=== PATIENT | female | born 1930 | race Caucasian/White ===

== ENCOUNTER 2017-05-02 10:49 | Inpatient (IN) | payer MEDICARE, MEDICAID ==
[~2017-05-02] VITALS: Ht 157.5 cm; Wt 49.4 kg
[2017-05-04] MEDS ORDERED: GEL100GE MC (16:01)
[2017-05-04] MEDS ORDERED: MAGN30OR PO (16:01)
[2017-05-04] MEDS ORDERED: ONDA4TAB5 PO (16:01)
[2017-05-04] MEDS ORDERED: HYDR-552 PO (16:01)
[2017-05-04] MEDS ORDERED: ACET-2154 PO (16:01)
[2017-05-04] MEDS ORDERED: DILT240C2 PO (16:01)
[2017-05-04] MEDS ORDERED: ERGO500014 PO (16:01)
[2017-05-04] MEDS ORDERED: MAG30ORA PO (16:01)
[2017-05-04] MEDS ORDERED: ZOLP5TAB2 PO (16:01)
[2017-05-04] MEDS ORDERED: MAGN400O6 PO (16:01)
[2017-05-04 16:23] VITALS: BP 114/74
[2017-05-04] MEDS ORDERED: Z GUARD REMEDY PASTE 57 GM TUBE TOP PRN (16:45)
--- NOTE | 2017-05-04 16:47 | NUR ---
pt received from from [place]. received report from k[place]ber[place]. pt arrived at 1600. vital signs assessed. pt has elevated rectal temperature of 100.4 and oral of 99.1. pt is warm to touch. provided cooling measures. pt had redness and edema for both feet. pt appeared red. other vitals stable. raised legs and offloaded heels. other vitals stable. med recon done. pt belongings list done. awaiting md to continue medications. pt unable to sign documentations at the time because pt is asleep. will continue to monitor.
--- NOTE | 2017-05-04 17:51 | NUR ---
md collins recommended not to have dvt pumps. aware of swelling on legs. will continue to mnitor.
[2017-05-04] MEDS ORDERED: ONDANSETRON HCL 4 MG TABLET PO PRN (20:00)
[2017-05-04] MEDS ORDERED: ZOLPIDEM 5 MG TABLET PO PRN (20:00)
[2017-05-04] MEDS ORDERED: MAG HYDROX/AL HYDROX/SIMETH 30 ML LIQUID UDC PO PRN (20:00)
[2017-05-04] MEDS ORDERED: ACETAMINOPHEN 325 MG TABLET PO PRN (20:00)
[2017-05-04] MEDS ORDERED: ERGOCALCIFEROL 50,000 UNIT CAPSULE PO SCH (20:00)
[2017-05-04 20:35] VITALS: BP 122/66
--- NOTE | 2017-05-04 21:19 | NUR ---
ERGOCALCITROL 50,000 UNITS NOT AVAILABLE. CHARGE NURSE AND NURSING CNC MACHINE OPERATOR AWARE.
--- NOTE | 2017-05-05 05:10 | NUR ---
awake alert and oriented when received. patient compliant with the care. Afebrile. incontinent of urine x2 Kept clean and dry. Repositioned for comfort. Turned q2 hrs. Needs attended. Denies any pain nor any discomfort. Will monitor patient.Slept well most of the shift. Fall precautions maintained.Siderails up.
[2017-05-05 07:15] VITALS: BP 122/76
[2017-05-05] MEDS: DILTIAZEM HCL CD 240 MG CAP.SR.24H PO SCH (09:17)
[2017-05-05] MEDS: HYDROCODONE/APAP 5-325MG TABLET PO PRN (09:19)
[2017-05-05] MEDS ORDERED: ERGOCALCIFEROL 50,000 UNIT CAPSULE PO SCH (10:02)
--- NOTE | 2017-05-05 16:08 | NUR ---
Family present at breakfast time and pt. feeding self with good appetite. Pt. working with P.T. this morning with good tolerance. Pain managed with prn [place] and positioning. Pt. encouraged to reposition every 2 hrs. with 1 pers assist. Zachary. legs elevated due to slight edema. Pt. sleeping intermittently throughout shift. No acute distress noted and all needs attended.
[2017-05-05 20:34] VITALS: BP 122/74
--- NOTE | 2017-05-06 07:37 | NUR ---
PATIENT NOTED LYING IN BED WATCHING TV, NO COMPLAINTS OF PAIN AT THIS TIME, NO SIGNS OF DISTRESS NOTED, CALL LIGHT IN REACH, BED LOCKED AND IN LOWEST POSITION, ALL NEEDS MET AT THIS TIME
[2017-05-06 08:30] LABS: BASOPHILS % (AUTO) 0.8 % (0.0-2.0); EOSINOPHILS # (AUTO) 0.1 K/uL (0.0-0.7); EOSINOPHILS % (AUTO) 2.3 % (0.0-7.0); HEMATOCRIT 42.2 % (31.2-41.9); HEMOGLOBIN 13.9 g/dL (10.9-14.3); LYMPHOCYTES # (AUTO) 1.1 K/uL (20.0-40.0); MEAN CORPUSCULAR HEMOGLOBIN 29.2 uug (24.7-32.8); MEAN CORPUSCULAR HGB CONC 33 g/dL (32.3-35.6); MEAN CORPUSCULAR VOLUME 88.7 fL (75.5-95.3); MONOCYTES # (AUTO) 0.6 K/uL (2.0-10.0); MONOCYTES % (AUTO) 12.2 % (0.0-11.0); NEUTROPHILS # (AUTO) 3.1 K/uL (1.8-8.9); NEUTROPHILS % (AUTO) 61.7 % (38.5-71.5); PLATELET COUNT (AUTO) 283 K/uL (179-408); RED BLOOD CELL COUNT(AUTO) 4.76 MIL/uL (3.63-4.92)
[2017-05-06 08:46] LABS: IRON, SERUM 22 ug/dL (50-175)
[2017-05-06 08:49] LABS: THYROID STIMULATING HORMONE 1.599 mIU/mL (0.358-3.740)
[2017-05-06] MEDS: DILTIAZEM HCL CD 240 MG CAP.SR.24H PO SCH (09:07)
[2017-05-06 09:08] LABS: ALANINE AMINOTRANSFERASE 24 U/L (14-59); ALKALINE PHOSPHATASE 126 U/L (50-136); ASPARTATE AMINOTRANSFERASE 21 U/L (15-37); BILIRUBIN,TOTAL 0.5 mg/dL (0.2-1.0); CARBON DIOXIDE 26 mmol/L (21-32); CHLORIDE 104 mmol/L (98-107); CHOLESTEROL 145 mg/dL (<200); CREATININE 1.1 mg/dL (0.6-1.3); GLUCOSE 111 mg/dL (74-106); HDL CHOLESTEROL 54 mg/dL (40-60); MAGNESIUM 2.2 mg/dL (1.8-2.4); PHOSPHOROUS 3.2 mg/dL (2.5-4.9); POTASSIUM 4.2 mmol/L (3.5-5.1); TOTAL PROTEIN, SERUM 7.4 g/dL (6.4-8.2); TRIGLYCERIDES 81 MG/DL (30-150); UREA NITROGEN, BLOOD 25 mg/dL (7-18)
[2017-05-06] MEDS: HYDROCODONE/APAP 5-325MG TABLET PO PRN (17:35)
[2017-05-06 19:30] VITALS: BP 115/73
--- NOTE | 2017-05-06 19:30 | NUR ---
Pt. already sleeping during rounds. Vitals signs taken BP 115/73, T 97.9, P 84, R 18, O2 sat @ 95% on 2LPM. Breathing even and nonlabored. Safety measures provided. Call light in reach.
--- NOTE | 2017-05-07 05:27 | NUR ---
pt. slept throughout the night. Denies of any pain or discomfort. All needs attended to. Kept clean and dry. Will endorse to AM nurse.
[2017-05-07 08:24] VITALS: BP 124/62
[2017-05-07] MEDS: DILTIAZEM HCL CD 240 MG CAP.SR.24H PO SCH (09:00)
--- NOTE | 2017-05-07 12:00 | NUR ---
SBAR report received near bedside, board updated. Pt awake, alert, and oriented. Pt assessed, no SOB, and denies any c/o pain. Pt compliant but BP 112/66, pulse 90, re assessed BP 108/69, pulse 93 Diltiazam held. Pt seen by MD. All safety and comfort needs met. Today's plan of care discussed including PT and OT. Call light and personal items within reach. Will continue to monitor Pt.
--- NOTE | 2017-05-07 14:16 | NUR ---
I agree Addendum: 05/07/17 at 1416 by DENNISE SNEED OT Amended: Links added.
--- NOTE | 2017-05-07 18:39 | NUR ---
Pt sitting comfortably in semi-fowlers in bed. Pt denies any SOB and O2 sat. 96% on RA. Pt denies any pain at this time. V/S remain WNL. Pt compliant with all routine medication administration and therapies this shift. Pt is clean, dry, and repositioned. All safety and comfort measures met at this time. Call light and personal items within reach. Will continue to monitor and endorse to oncoming shift supervisor.
--- NOTE | 2017-05-07 19:35 | NUR ---
Received pt in bed, appearing to be asleep but easily arousable to verbal stimuli. No acute distress noted. Denies pain or discomfort at this time. Right wrist heplock noted patent and intact, denies pain at site. Able to verbalize needs. Breathing even and unlabored. All safety measures and fall precautions maintained. Call light within reach. Will continue to monitor.
[2017-05-07 21:01] VITALS: BP 130/79
--- NOTE | 2017-05-08 06:14 | NUR ---
Pt slept comfortably throughout the shift. No acute distress noted. No complaints of pain or discomfort. Kept clean and dry. All needs well attended to and met promptly. All safety measures and fall precautions maintained. Call light within reach. Will continue to monitor. Will endorse to AM shift.
--- NOTE | 2017-05-08 07:20 | NUR ---
Received patient asleep, lying on bed on a semi- roberto's position, easily aroused with no SOB or distress noted. All needs were attended and anticipated. call light placed within reach. patient was encouraged to use call light whenever assistance is needed. Will continue to monitor.
[2017-05-08 07:47] VITALS: BP 141/82
[2017-05-08] MEDS: DILTIAZEM HCL CD 240 MG CAP.SR.24H PO SCH (08:56)
--- NOTE | 2017-05-08 11:42 | NUR ---
Patient noted awake, alert with family member at her bedside with no SOB, distress or any discomforts noted. All needs were attended and anticipated. Call light within reach. patient was encouraged to use call light whenever assistance is needed. Will continue to monitor.
--- NOTE | 2017-05-08 14:33 | NUR ---
I agree Addendum: 05/08/17 at 1434 by DENNISE SNEED OT Amended: Links added.
--- NOTE | 2017-05-08 15:36 | NUR ---
Interdisciplinary Team Conference
--- NOTE | 2017-05-08 19:00 | NUR ---
patient remained stable throughout the shift. All needs were attended and anticipated. Endorsed to incoming shift.
[2017-05-08 20:57] VITALS: BP 129/70
[2017-05-09] MEDS: ASPIRIN EC 81 MG TABLET.DR PO SCH (08:44)
[2017-05-09] MEDS: DILTIAZEM HCL CD 240 MG CAP.SR.24H PO SCH (08:44)
[2017-05-09] MEDS ORDERED: ERGOCALCIFEROL 50,000 UNIT CAPSULE PO SCH (09:00)
[2017-05-09 09:51] VITALS: BP 134/79
--- NOTE | 2017-05-09 14:48 | NUR ---
I agree Addendum: 05/09/17 at 1449 by DENNISE SNEED OT Amended: Links added.
--- NOTE | 2017-05-09 19:30 | NUR ---
RECEIVED SHIFT REPORT FROM PREVIOUS SHIFT NURSE. PATIENT RESTING COMFORTABLY IN BED. A/OX2. IN BED REST. LANGUAGE BARRIER PRESENT BUT ABLE TO COMMUNICATE WITH PATIENT WITH HER NEEDS. WILL CONTINUE TO MONITOR PATIENT. PATIENT IN SAFE ENVIRONMENT, BED IN LOCKED/LOW POSITION, SIDE RAILS UP X2, CALL LIGHT WITHIN REACH. EDUCATED PATIENT THE IMPORTANCE OF USING CALL LIGHT. PATIENT VERBALIZED UNDERSTANDING. SAFETY/COMFORT WILL BE PROVIDED.
[2017-05-09 20:02] VITALS: BP 104/67
[2017-05-10 07:33] VITALS: BP 128/73
[2017-05-10] MEDS: ASPIRIN EC 81 MG TABLET.DR PO SCH (08:58)
[2017-05-10] MEDS: DILTIAZEM HCL CD 240 MG CAP.SR.24H PO SCH (08:58)
--- NOTE | 2017-05-10 13:24 | NUR ---
I AGREE TO TREATMENT PROVIDED Addendum: 05/14/17 at 1326 by JAY SLOAN PT Amended: Links added.
--- NOTE | 2017-05-10 13:27 | NUR ---
I AGREE TO TREATMENT PROVIDED Addendum: 05/14/17 at 1329 by JAY SLOAN PT Amended: Links added.
--- NOTE | 2017-05-10 13:32 | NUR ---
I AGREE TO TREATMENT PROVIDED Addendum: 05/14/17 at 1333 by JAY SLOAN PT Amended: Links added.
--- NOTE | 2017-05-10 19:30 | NUR ---
Receive patient on bed, lying comfortable, asleep but easily arousable when called by her name. Vital signs taken BP 106/65, T 97.7, P 73, R 18, O2 sat at 98% on 2LPM. Breathing even and nonlabored. Safety measure provided. Call lights in reach.Will monitor the patient.
--- NOTE | 2017-05-10 19:38 | NUR ---
Handoff to night nurse.
[2017-05-10 21:46] VITALS: BP 106/65
--- NOTE | 2017-05-11 05:46 | NUR ---
pt. slept throughout the night. Denies of any pain or discomfort. All needs attended to. Kept clean and dry. Will endorse to AM nurse.
[2017-05-11 07:30] VITALS: BP 117/71
[2017-05-11] MEDS: HYDROCODONE/APAP 5-325MG TABLET PO PRN (07:57)
[2017-05-11] MEDS: ASPIRIN EC 81 MG TABLET.DR PO SCH (07:57)
[2017-05-11] MEDS: DILTIAZEM HCL CD 240 MG CAP.SR.24H PO SCH (08:04)
--- NOTE | 2017-05-11 08:42 | NUR ---
Pt SBAR report received, board updated. Pt assessed, c/o pain 5/10 to pelvis after wheelchair transfer for PT. Pain medication [place] administered per PRN orders. Pt compliant with all morning medication administration, BP medication held r/t decreased BP of 117/71. Will continue to monitor.
--- NOTE | 2017-05-11 20:30 | NUR ---
Received pt on bed asleep. In no acute distress. Denies pain. No SOB noted. Vital signs stable. Kept clean, dry and comfortable. Call light within reach. All needs attended. Will continue to monitor.
[2017-05-11 21:03] VITALS: BP 132/84
--- NOTE | 2017-05-12 05:51 | NUR ---
Patient slept well throughout the shift. No acute distress noted. No complaints of pain or discomfort. Breathing even and unlabored with normal respirations. Incontinent care rendered. Safety and fall precautions observed and maintained. Call light placed within reach. All needs attended.
[2017-05-12 07:30] VITALS: BP 134/93
[2017-05-12] MEDS: ASPIRIN EC 81 MG TABLET.DR PO SCH (08:53)
[2017-05-12] MEDS: DILTIAZEM HCL CD 240 MG CAP.SR.24H PO SCH (09:00)
--- NOTE | 2017-05-12 11:29 | NUR ---
SBAR report received near bedside, board updated. Pt assessed, no SOB on RA, no c/o pain, and reports having tried to get up out of bed on her own, but was assisted. Pt compliant with all other routinely scheduled medications this morning, BP 111/65, pulse 86 BP med held. All comfort and safety measures met. Pt able to make needs known. Personal items and call light within reach. Will continue to monitor.
--- NOTE | 2017-05-12 16:17 | NUR ---
I agree Addendum: 05/13/17 at 1617 by ELADIO BRAVO OT Amended: Links added.
--- NOTE | 2017-05-12 18:54 | NUR ---
Pt has remained stable with no changes throughout the shift. All comfort and safety measures met. Call light within reach. Will endorse to shift supervisor rn.
[2017-05-12 19:30] VITALS: BP 119/78
--- NOTE | 2017-05-12 19:55 | NUR ---
Patient lying in bed, already sleeping. Vital signs taken T 97.8, P 95, R 17, BP 119/78, O2 sat @ 97% on 2LPM. No acute signs of any respiratory distress. Patient denies of any discomfort or pain. Safety measures provided. Bed on low position and bed alarm ON. Call light within reach. Will continue to monitor.
[2017-05-12] MEDS: CALCIUM CARB/VITAMIN D 500MG-200UNITS TABLET PO SCH (22:31)
[2017-05-12] MEDS ORDERED: CALCIUM CARB/VITAMIN D 500MG-200UNITS TABLET ONE (22:43)
--- NOTE | 2017-05-12 22:56 | NUR ---
Ativan 0.5mg PO given per patient's request. Addendum: 05/13/17 at 0428 by CAROLINA TALAVERA RN Error.
--- NOTE | 2017-05-13 06:53 | NUR ---
Patient rested well the entire night. Breathing even and nonlabored. Patient kept clean and dry. All dues meds given. Will endorse to AM shift nurse.
[2017-05-13 07:13] VITALS: BP 131/85
[2017-05-13] MEDS: DILTIAZEM HCL CD 240 MG CAP.SR.24H PO SCH (08:38)
[2017-05-13] MEDS: FERROUS SULFATE 325 MG TABEC PO SCH (08:38)
[2017-05-13] MEDS: ASPIRIN EC 81 MG TABLET.DR PO SCH (08:38)
[2017-05-13] MEDS: FUROSEMIDE 20 MG TABLET PO SCH (08:38)
[2017-05-13] MEDS: CALCIUM CARB/VITAMIN D 500MG-200UNITS TABLET PO SCH ×2 (08:39→21:14)
--- NOTE | 2017-05-13 15:21 | NUR ---
I agree Addendum: 05/13/17 at 1523 by DENNISE SNEED OT Amended: Links added.
--- NOTE | 2017-05-13 16:16 | NUR ---
I agree Addendum: 05/13/17 at 1616 by ELADIO BRAVO OT Amended: Links added.
--- NOTE | 2017-05-14 00:59 | NUR ---
Pt. already sleeping during rounds but arousable when called by name. Vital signs taken, no signs of any distress. Asked patient if she needs to be changed, she doesn't want to be changed as of this moment. Denies of any pain. Provided safety measures. Bed on low position and bed alarm on. Call light in reach.
--- NOTE | 2017-05-14 05:38 | NUR ---
Pt. tried to get out of the bed at 11pm last night. Reoriented the patient about the place and time. Pt. agreed to try and go back to sleep. Pt. then slept throughout the shift. Patient refused of putting back the oxygen, O2 sat checked @ 95% RA. Patient said she feels okay without the oxygen. Per patient " i can't sleep with the thing in my nose. (nasal canula)". Explained risks and benefits, but pt. still doesn't want to use the oxygen. Breathing was even and nonlabored throughout the shift. Vital signs WNL, see PORTFOLIO ADMINISTRATOR notes. Will endorse to AM shift nurse.
[2017-05-14 07:06] VITALS: BP 123/75
[2017-05-14] MEDS: CALCIUM CARB/VITAMIN D 500MG-200UNITS TABLET PO SCH ×2 (08:48→20:48)
[2017-05-14] MEDS: FERROUS SULFATE 325 MG TABEC PO SCH (08:48)
[2017-05-14] MEDS: ASPIRIN EC 81 MG TABLET.DR PO SCH (08:48)
[2017-05-14] MEDS: FUROSEMIDE 20 MG TABLET PO SCH (08:49)
[2017-05-14] MEDS: DILTIAZEM HCL CD 240 MG CAP.SR.24H PO SCH (08:59)
--- NOTE | 2017-05-14 10:15 | NUR ---
SBAR report received near bedside, board updated. Pt assessed no acute distress noted, no SOB, and O2 sat at 99% on RA, mask provided r/t poor air quality. Pain 3-4/10 reported, Tylenol administered per PRN orders. Pt compliant with all routinely scheduled morning medications. Pt denied assistance with any grooming at this time requesting to rest following breakfast. All comfort and safety measures met. Pt able to make needs known. Personal items and call light within reach. Will continue to monitor.
--- NOTE | 2017-05-14 16:16 | NUR ---
Pt seen by , new orders received for a BMP tomorrow morning and to remove IV heplock. Will follow up and endorse to oncoming shift. Pt able to make needs known. Will continue to monitor.
--- NOTE | 2017-05-14 18:08 | NUR ---
Pt IV removed, intact, per Md approval. No notable changes, v/s stable and labs WNL. Will continue to monitor and endorse oncoming shift.
--- NOTE | 2017-05-14 19:30 | NUR ---
RECEIVED PATIENT FROM DAY SHIFT NURSE. SHIFT REPORT AT BEDSIDE. PATIENT STABLE LYING COMFORTABLY IN BED WITH NO SIGNS OF PAIN, SOB, OR ACUTE DISTRESS. PERTINENT ASSESSMENT COMPLETED. CALL LIGHT PLACED WITHIN REACH OF PATIENT. WILL CONTINUE TO MONITOR PATIENT THROUGH SHIFT.
[2017-05-14 20:58] VITALS: BP 96/61
--- NOTE | 2017-05-15 06:56 | NUR ---
PATIENT SLEPT WELL THROUGH THE NIGHT. STABLE WITH NO SIGNS OF PAIN, SOB, OR ACUTE DISTRESS. ON 2L O2 VIA NC. ALL NEEDS ATTENDED TO. ALL MEDICATIONS ADMINISTERED ORDERED. VITAL SIGNS STABLE. SAFETY MEASURES IMPLEMENTED. CALL LIGHT WITHIN REACH OF PATIENT. WILL ENDORSE TO DAY SHIFT NURSE.
[2017-05-15 07:03] VITALS: BP 128/69
[2017-05-15 07:32] LABS: CARBON DIOXIDE 28 mmol/L (21-32); CHLORIDE 102 mmol/L (98-107); CREATININE 1.1 mg/dL (0.6-1.3); GLUCOSE 103 mg/dL (74-106); POTASSIUM 4.2 mmol/L (3.5-5.1); UREA NITROGEN, BLOOD 34 mg/dL (7-18)
--- NOTE | 2017-05-15 09:21 | NUR ---
I agree Addendum: 05/15/17 at 0922 by ELADIO BRAVO OT Amended: Links added.
[2017-05-15] MEDS: FERROUS SULFATE 325 MG TABEC PO SCH (10:14)
[2017-05-15] MEDS: ASPIRIN EC 81 MG TABLET.DR PO SCH (10:14)
[2017-05-15] MEDS: CALCIUM CARB/VITAMIN D 500MG-200UNITS TABLET PO SCH ×2 (10:14→20:28)
[2017-05-15] MEDS: FUROSEMIDE 20 MG TABLET PO SCH (10:14)
[2017-05-15] MEDS: DILTIAZEM HCL CD 240 MG CAP.SR.24H PO SCH (10:14)
--- NOTE | 2017-05-15 14:34 | NUR ---
INTERDISCIPLINARY TEAM CONFERENCE
[2017-05-15 19:47] VITALS: BP 106/61
--- NOTE | 2017-05-16 05:40 | NUR ---
Pt. slept the entire night. Vital signs are WNL, no acute signs of any respi. distress. Pt. kept dry and comfortable. Diaper changed per soiling. Will endorse to AM shift.
--- NOTE | 2017-05-16 08:00 | NUR ---
PATIENT NOTED LAYING IN BED WITH EYES CLOSED, NO COMPLAINTS OF PAIN, NO SIGNS OF DISTRESS NOTED, CALL LIGHT IN REACH, BED LOCKED AND IN LOWEST POSITION, BED ALARM IN PLACE AT THIS TIME
[2017-05-16 09:00] VITALS: BP 114/68
[2017-05-16] MEDS: FERROUS SULFATE 325 MG TABEC PO SCH (09:07)
[2017-05-16] MEDS: FUROSEMIDE 20 MG TABLET PO SCH (09:07)
[2017-05-16] MEDS: ASPIRIN EC 81 MG TABLET.DR PO SCH (09:07)
[2017-05-16] MEDS: CALCIUM CARB/VITAMIN D 500MG-200UNITS TABLET PO SCH ×2 (09:07→20:45)
[2017-05-16] MEDS: DILTIAZEM HCL CD 240 MG CAP.SR.24H PO SCH (09:07)
--- NOTE | 2017-05-16 09:37 | NUR ---
I agree Addendum: 05/16/17 at 0937 by ELADIO BRAVO OT Amended: Links added.
--- NOTE | 2017-05-16 09:38 | NUR ---
I agree Addendum: 05/16/17 at 0938 by ELADIO BRAVO OT Amended: Links added.
--- NOTE | 2017-05-16 19:15 | NUR ---
Received pt resting comfortably in bed. AAO x2. No acute distress noted. No c/o pain or discomfort. Safety measures maintained. Call light and personal belongings within reach. Will continue to monitor.
[2017-05-16 20:14] VITALS: BP 110/60
--- NOTE | 2017-05-17 05:30 | NUR ---
Patient slept intermittently at night. Vital signs stable. All meds given as prescribed. All needs attended to promptly. Will endorse to day shift RN. Continue to monitor.
--- NOTE | 2017-05-17 07:43 | NUR ---
PATIENT NOTED SLEEPING IN BED, NO SIGNS OF DISTRESS, NO FACIAL CUES OF PAIN NOTED, CALL LIGHT IN REACH, BED LOCKED AND IN LOWEST POSITION, BED ALARM IN PLACE, ALL NEEDS MET AT THIS TIME.
[2017-05-17 08:00] VITALS: BP 125/77
[2017-05-17] MEDS: ASPIRIN EC 81 MG TABLET.DR PO SCH (08:53)
[2017-05-17] MEDS: CALCIUM CARB/VITAMIN D 500MG-200UNITS TABLET PO SCH ×2 (08:53→21:04)
[2017-05-17] MEDS: DILTIAZEM HCL CD 240 MG CAP.SR.24H PO SCH (08:53)
[2017-05-17] MEDS: FERROUS SULFATE 325 MG TABEC PO SCH (08:54)
[2017-05-17] MEDS: FUROSEMIDE 20 MG TABLET PO SCH (08:54)
--- NOTE | 2017-05-17 09:16 | NUR ---
I agree Addendum: 05/17/17 at 0916 by ELADIO BRAVO OT Amended: Links added.
--- NOTE | 2017-05-17 13:00 | NUR ---
Patient in bed, denies pain and not in distress, respirations even and regular. Needs provided promptly, due medications given encouraged ambulation and repositioning for pressure relief, kept clean and dry, will continue to monitor.
--- NOTE | 2017-05-17 19:30 | NUR ---
RECEIVED PATIENT FROM DAY SHIFT NURSE. SHIFT REPORT AT BEDSIDE. PATIENT A/O X2-3 WITH NO SIGNS OF PAIN, SOB, OR ACUTE DISTRESS. [place] SPEAKING PATIENT. PATIENT SLEEPING COMFORTABLY IN BED AT START OF SHIFT. BED IN LOW POSITION X2 SIDE RAILS UP. NOTED WITH RIGHT HAND 22G IV, CLEAN, PATENT, & INTACT. PERTINENT ASSESSMENT DONE. CALL LIGHT WITHIN REACH OF PATIENT. WILL CONTINUE TO MONITOR PATIENT THROUGH SHIFT.
[2017-05-17 20:28] VITALS: BP 109/64
--- NOTE | 2017-05-18 06:29 | NUR ---
patient slept well through the shift. no signs of pain, sob, or acute distress. vital signs stable through shift. able to make needs known. all medications administered as ordered per md. call light within reach of patient. safety measures implemented. will endorse to day shift nurse.
[2017-05-18 08:00] VITALS: BP 118/72
[2017-05-18] MEDS: CALCIUM CARB/VITAMIN D 500MG-200UNITS TABLET PO SCH ×2 (09:14→20:43)
[2017-05-18] MEDS: ASPIRIN EC 81 MG TABLET.DR PO SCH (09:15)
[2017-05-18] MEDS: DILTIAZEM HCL CD 240 MG CAP.SR.24H PO SCH (09:18)
[2017-05-18] MEDS: FERROUS SULFATE 325 MG TABEC PO SCH (09:18)
[2017-05-18] MEDS: FUROSEMIDE 20 MG TABLET PO SCH (09:18)
[2017-05-18 21:33] VITALS: BP 114/64
--- NOTE | 2017-05-19 06:39 | NUR ---
lYING IN BED DENIES OF ANY DISTRESS ON R/A SCD TO BILAT L.e, SIDE RAILS UP CALL LIGHT WITHIN REACH BED IN LOWEST POSITION WHEELS LOCKED.
[2017-05-19 08:00] VITALS: BP 109/54
[2017-05-19] MEDS: FERROUS SULFATE 325 MG TABEC PO SCH (10:17)
[2017-05-19] MEDS: FUROSEMIDE 20 MG TABLET PO SCH (10:17)
[2017-05-19] MEDS: CALCIUM CARB/VITAMIN D 500MG-200UNITS TABLET PO SCH (10:17)
[2017-05-19 10:18] VITALS: BP 109/54
[2017-05-19] MEDS: DILTIAZEM HCL CD 240 MG CAP.SR.24H PO SCH (10:18)
[2017-05-19] MEDS: ASPIRIN EC 81 MG TABLET.DR PO SCH (10:18)
--- NOTE | 2017-05-19 13:46 | NUR ---
D/C NOTE FOR D/C TODAY. CAREGIVER AT [facility] WAITING FOR SON TO PICK HER UP. VSS. ORDER WRITTEN. PICS OF COCCYX TAKEN, NO C/O PAIN OR DISTRESS NOTED. MED PRESCRIPTION GIVEN. LEAVING WITH W/C AND BSC ORDERED.
== END 2017-05-19 14:10 | disposition home health service (06) | DRG 559 ==
PROVIDERS: ADMIT Physical Medicine & Rehabilitation Pain Medicine; ATTEND Physical Medicine & Rehabilitation Pain Medicine
DX: M80.051D Age-related osteoporosis with current pathological fracture, right femur, subsequent encounter for fracture with routine healing (principal); E43 Unspecified severe protein-calorie malnutrition; I50.33 Acute on chronic diastolic (congestive) heart failure; D68.59 Other primary thrombophilia; F03.90 Unspecified dementia, unspecified severity, without behavioral disturbance, psychotic disturbance, mood disturbance, and anxiety; I48.2 Chronic atrial fibrillation; I35.0 Nonrheumatic aortic (valve) stenosis; J98.11 Atelectasis; I10 Essential (primary) hypertension; M80.052D Age-related osteoporosis with current pathological fracture, left femur, subsequent encounter for fracture with routine healing; M17.0 Bilateral primary osteoarthritis of knee; M47.816 Spondylosis without myelopathy or radiculopathy, lumbar region; R53.1 Weakness; E55.9 Vitamin D deficiency, unspecified; E61.1 Iron deficiency; Z91.81 History of falling; I11.0 Hypertensive heart disease with heart failure
CPT/HCPCS: 36415; 82306; 83550; 83735; 84100; 84443; 85025; 92526; 92610; 97110; 97112; 97116; 97165; 97530; 97535